=== PATIENT | male | born 1950 | race Caucasian/White ===

== ENCOUNTER 2017-01-14 18:38 | Emergency (ER) | payer OTHER, MEDICAID ==
[~2017-01-14] VITALS: Ht 165.1 cm; Wt 113.4 kg
[2017-01-14 18:38] VITALS: BP_SYST 137
[2017-01-14] MEDS ORDERED: ALBUTEROL SULFATE 0.083% 2.5 MG/3 ML VIAL.NEB IH ONE (20:15)
[2017-01-14] MEDS ORDERED: IPRATROPIUM BROM 0.5 MG/2.5 ML VIAL.NEB (ATROVENT) IH ONE (20:15)
[2017-01-14 20:29] LABS: BASOPHILS # (AUTO) 0.2 K/uL (0.0-0.2); BASOPHILS % (AUTO) 1.2 % (0.0-2.0); EOSINOPHILS # (AUTO) 0.6 K/uL (0.0-0.4); EOSINOPHILS % (AUTO) 4.1 % (0.0-4.0); HEMATOCRIT 45.8 % (36-54); LYMPHOCYTES # (AUTO) 1.1 K/uL (1.0-5.5); LYMPHOCYTES % (AUTO) 7.8 % (20.5-51.5); MEAN CORPUSCULAR HEMOGLOBIN 27 pg (27-31); MEAN CORPUSCULAR HGB CONC 33 % (32-36); MEAN CORPUSCULAR VOLUME 84 fL (79.0-98.0); MONOCYTES # (AUTO) 1.6 K/uL (0.0-1.0); MONOCYTES % (AUTO) 12.1 % (1.7-9.3); NEUTROPHILS # (AUTO) 10.1 K/uL (1.8-7.7); NEUTROPHILS % (AUTO) 74.8 % (40.0-70.0); PLATELET COUNT (AUTO) 272 K/uL (130-430); RED BLOOD CELL COUNT(AUTO) 5.49 MIL/uL (4.2-6.2); WHITE BLOOD COUNT (AUTO) 13.6 K/uL (4.8-10.8)
[2017-01-14 20:36] LABS: CREATININE 1.66 mg/dL (0.55-1.30); POTASSIUM 4.3 mmol/L (3.5-5.1)
[2017-01-14 20:40] LABS: INR 1.8 (0.80-1.20); PROTHROMBIN TIME 19.7 SECS (9.5-12.5)
[2017-01-14 20:41] LABS: ALBUMIN 3.1 g/dL (3.4-4.8); TOTAL BILIRUBIN 0.2 mg/dL (0.0-1.0); TOTAL PROTEIN, SERUM 6.1 g/dL (6.4-8.3)
[2017-01-14] MEDS ORDERED: methylPREDNISolone SOD SUCC/PF 62.5 MG/ML VIAL IVP ONE (23:00)
[2017-01-15 00:57] VITALS: BP_SYST 137
== END 2017-01-15 00:57 | disposition home or self-care (01) ==
LOC: SED 18:38 → EDSEX 18:38 → SED 01-15 00:57
DX: J44.1 Chronic obstructive pulmonary disease with (acute) exacerbation (principal); Z86.79 Personal history of other diseases of the circulatory system; Z95.1 Presence of aortocoronary bypass graft; Z71.6 Tobacco abuse counseling; Z91.02 Food additives allergy status
CPT/HCPCS: 36415; 71010; 80053; 83880; 84484; 85025; 85610; 85730; 93005; 94640; 96374; 99285; J2930